=== PATIENT | female | born 1955 | race Caucasian/White ===

== ENCOUNTER 2020-07-08 16:05 | Inpatient (IN) | payer MEDICAID ==
[~2020-07-08] VITALS: Ht 160 cm; Wt 94.6 kg
--- NOTE | 2020-07-08 16:15 | NUR ---
Pt arrived to room 35, assumed care. Pt presents with small bite j luis on right hand from cat bite, red streaking up arm with pain. Pt denies fever, n/v.
--- NOTE | 2020-07-08 16:20 | NUR ---
Cat bit happened yesterday, pt went to clinic today and sent pt here to ED.
--- NOTE | 2020-07-08 16:30 | NUR ---
Pt reports she has some neausea and pain in right arm and a headache.
[2020-07-08] MEDS ORDERED: DOXYCYCLINE 100 MG in DEXTROSE 5% 250 ML IV ONE (16:36)
[2020-07-08 16:56] LABS: BASOPHILS % (AUTO) 0 % (0-1); EOSINOPHILS % (AUTO) 1 % (1-7); LYMPHOCYTES % (AUTO) 8 % (22-44); MEAN CORPUSCULAR HEMOGLOBIN 29.4 pg (27.0-34.8); MEAN CORPUSCULAR HGB CONC 33.9 g/dL (32.4-35.8); MONOCYTES % (AUTO) 4 % (2-9); NEUTROPHILS % (AUTO) 88 % (42-75); PLATELET COUNT 169 x10^3/uL (130-400); RED BLOOD COUNT 4.92 x10^6/uL (3.82-5.3); RED CELL DISTRIBUTION WIDTH 13.3 % (9.6-15.2)
[2020-07-08] MEDS ORDERED: METRONIDAZOLE PMX 500MG/100ML 100 ML ONE (16:57)
[2020-07-08 16:59] LABS: MD NO
[2020-07-08] MEDS ORDERED: METRONIDAZOLE PMX 500MG/100ML 100 ML IV ONE (17:00)
[2020-07-08] MEDS ORDERED: AMPICILLIN/SULBACTAM 3 GM in SODIUM CHLORIDE 0.9% 100 ML IV ONE (17:09)
--- NOTE | 2020-07-08 17:57 | NUR ---
IV start has been attempted 3 times- now attempting with US.
--- NOTE | 2020-07-08 18:25 | NUR ---
US IV started. Pt hooked up to monitor, rechecking vitals. Dr. Hastings aware that pt had allergic reaction to penicillin as a child with a rash but no respiratory symptoms. Okay'd giving unasyn, will monitor pt closely during and post administration.
--- NOTE | 2020-07-08 18:25 | NUR ---
TASK RN: PLACED PIV VIA US RUE
--- NOTE | 2020-07-08 18:27 | NUR ---
Antibiotic not started yet. Monitor showing a-fib HR as high as 173. Dr. Hastings at bedside.
--- NOTE | 2020-07-08 18:35 | NUR ---
RN at bedside, pt hooked up to monitor, Unasyn started per MD approval.
[2020-07-08] MEDS ORDERED: RIVAROXABAN 20 MG TABLET PO SCH (18:38)
[2020-07-08] MEDS ORDERED: DILTIAZEM 5 MG/ML, 5ML ONE ×2 (18:39→18:45)
[2020-07-08] MEDS ORDERED: RIVAROXABAN 20 MG TABLET ONE (18:45)
--- NOTE | 2020-07-08 18:59 | NUR ---
HR down to 111 after dilt administered per eMAR. XR at bedside. Unasyn infusing. Pt denies any allergic symptoms d/t antibiotic.
[2020-07-08] MEDS ORDERED: SODIUM CHLORIDE 0.9% 1,000ML IVBOLUS ONE (19:00)
[2020-07-08] MEDS ORDERED: DILTIAZEM 5 MG/ML, 5ML IVPush ONE (19:00)
--- NOTE | 2020-07-08 19:26 | NUR ---
Pt reporting nausea and pain is getting worse, informing Dr. Hastings.
--- NOTE | 2020-07-08 19:32 | NUR ---
Pt shaking and shivering, reporting she is just freezing, temp. 98.6. Also reporting sudden chest pain. Informing Dr. Hastings. Pt hooked up to monitor, NS infusing through IV, RN at bedside.
--- NOTE | 2020-07-08 19:37 | NUR ---
Dr. Hastings at bedside visiting with pt. Floor is ready to get report on pt- Dr. Hastings reports she is good to go up to floor.
--- NOTE | 2020-07-08 19:38 | NUR ---
MED REC: pt reports the only medication she takes at home is tylenol as needed.
--- NOTE | 2020-07-08 20:08 | NUR ---
Report called to [facility].
--- NOTE | 2020-07-08 20:15 | NUR ---
Pt being transported to room 523
[2020-07-08] MEDS ORDERED: IBUPROFEN 200 MG TABLET PO ONE (21:00)
[2020-07-08 21:08] VITALS: BP 118/84
[2020-07-08] MEDS ORDERED: LACTATED RINGERS 1,000 ML IV SCH (21:30)
[2020-07-08] MEDS ORDERED: LABETALOL 5MG/ML, 20ML IVPush PRN (21:30)
[2020-07-08] MEDS ORDERED: MELATONIN 5 MG TABLET PO PRN (21:30)
[2020-07-08] MEDS ORDERED: LIDODERM 5% PATCH TD PRN (21:30)
[2020-07-08] MEDS: METOPROLOL TARTRATE 25 MG TAB PO SCH (21:34)
[2020-07-08] MEDS: OXYcodone/APAP 5/325MG TABLET PO PRN (21:35)
[2020-07-09] MEDS: METRONIDAZOLE PMX 500MG/100ML 100 ML IV SCH ×2 (00:47→08:24)
[2020-07-09 00:53] VITALS: BP 111/53
[2020-07-09 05:27] LABS: BASOPHILS % (AUTO) 1 % (0-1); EOSINOPHILS % (AUTO) 0 % (1-7); LYMPHOCYTES % (AUTO) 16 % (22-44); MEAN CORPUSCULAR HEMOGLOBIN 29.3 pg (27.0-34.8); MEAN CORPUSCULAR HGB CONC 33.6 g/dL (32.4-35.8); MEAN PLATELET VOLUME 9.4 fL (7.4-10.4); MONOCYTES % (AUTO) 5 % (2-9); NEUTROPHILS % (AUTO) 78 % (42-75); PLATELET COUNT 200 x10^3/uL (130-400); RED BLOOD COUNT 4.43 x10^6/uL (3.82-5.3); RED CELL DISTRIBUTION WIDTH 13.5 % (9.6-15.2)
[2020-07-09 05:30] VITALS: BP 122/66
[2020-07-09] MEDS: DOXYCYCLINE 100 MG in DEXTROSE 5% 250 ML IV SCH ×2 (05:31→17:24)
[2020-07-09 05:32] LABS: MD NO
[2020-07-09] MEDS: METOPROLOL TARTRATE 25 MG TAB PO SCH ×2 (05:35→17:23)
[2020-07-09 05:38] LABS: ANION GAP 6 mmol/L (5-15); CALCIUM 8.2 mg/dL (8.5-10.1); CHLORIDE 112 mmol/L (98-107)
[2020-07-09 05:51] LABS: CREATININE 0.88 mg/dL (0.55-1.02); FREE T4 (FREE THYROXINE) 1.19 ng/dL (0.76-1.46)
[2020-07-09 07:06] VITALS: BP 105/70
[2020-07-09] MEDS: ACETAMINOPHEN 325 MG TABLET PO PRN ×2 (08:23→14:31)
[2020-07-09 13:28] VITALS: BP 108/73
[2020-07-09] MEDS: RIVAROXABAN 20 MG TABLET PO SCH (17:23)
[2020-07-09 20:38] VITALS: BP 112/80
[2020-07-10 01:04] VITALS: BP 121/81
[2020-07-10] MEDS: METOPROLOL TARTRATE 25 MG TAB PO SCH ×5 (05:32→20:45)
[2020-07-10] MEDS: DOXYCYCLINE 100 MG in DEXTROSE 5% 250 ML IV SCH ×2 (05:32→17:12)
[2020-07-10] MEDS: OXYcodone/APAP 5/325MG TABLET PO PRN (05:32)
[2020-07-10 06:33] VITALS: BP 112/69
[2020-07-10] MEDS: ONDANSETRON 2MG/ML, 2ML IVPush PRN ×2 (06:58→14:03)
[2020-07-10 07:21] VITALS: BP 113/80
[2020-07-10 08:55] LABS: BASOPHILS % (AUTO) 0 % (0-1); EOSINOPHILS % (AUTO) 0 % (1-7); LYMPHOCYTES % (AUTO) 9 % (22-44); MEAN CORPUSCULAR HEMOGLOBIN 28.8 pg (27.0-34.8); MONOCYTES % (AUTO) 4 % (2-9); NEUTROPHILS % (AUTO) 87 % (42-75); PLATELET COUNT 202 x10^3/uL (130-400); RED BLOOD COUNT 4.57 x10^6/uL (3.82-5.3); RED CELL DISTRIBUTION WIDTH 13.3 % (9.6-15.2)
[2020-07-10 08:56] LABS: MD NO
[2020-07-10 09:08] LABS: ALBUMIN 3.3 g/dL (3.4-5.0); ANION GAP 9 mmol/L (5-15); CALCIUM 8.4 mg/dL (8.5-10.1); CHLORIDE 109 mmol/L (98-107)
[2020-07-10 09:20] LABS: ALANINE AMINOTRANSFERASE 154 U/L (12-78); CREATININE 0.89 mg/dL (0.55-1.02)
[2020-07-10 09:22] LABS: ALKALINE PHOSPHATASE 107 U/L (45-117); BILIRUBIN,TOTAL 0.5 mg/dL (0.2-1.0); TOTAL PROTEIN 6.9 g/dL (6.4-8.2)
[2020-07-10 14:01] VITALS: BP 114/63
[2020-07-10] MEDS: ACETAMINOPHEN 325 MG TABLET PO PRN (14:16)
[2020-07-10] MEDS: RIVAROXABAN 20 MG TABLET PO SCH (17:12)
[2020-07-10 20:00] VITALS: BP 132/72
[2020-07-10] MEDS: TEMAZEPAM 15 MG CAPSULE PO PRN (22:16)
[2020-07-11] VITALS (8 sets, daily range): BP systolic 97–147; BP diastolic 55–89
[2020-07-11] MEDS: DOXYCYCLINE 100 MG in DEXTROSE 5% 250 ML IV SCH ×2 (05:07→19:56)
[2020-07-11 05:33] LABS: BASOPHILS % (AUTO) 0 % (0-1); EOSINOPHILS % (AUTO) 1 % (1-7); LYMPHOCYTES % (AUTO) 27 % (22-44); MEAN CORPUSCULAR HEMOGLOBIN 29.4 pg (27.0-34.8); MEAN CORPUSCULAR HGB CONC 33.7 g/dL (32.4-35.8); MONOCYTES % (AUTO) 6 % (2-9); NEUTROPHILS % (AUTO) 66 % (42-75); PLATELET COUNT 212 x10^3/uL (130-400); RED BLOOD COUNT 4.66 x10^6/uL (3.82-5.3); RED CELL DISTRIBUTION WIDTH 13.6 % (9.6-15.2)
[2020-07-11 05:34] LABS: MD NO
[2020-07-11 05:51] LABS: ALANINE AMINOTRANSFERASE 121 U/L (12-78); ALBUMIN 3.3 g/dL (3.4-5.0); ANION GAP 7 mmol/L (5-15); CALCIUM 8.7 mg/dL (8.5-10.1); CHLORIDE 111 mmol/L (98-107); CREATININE 0.97 mg/dL (0.55-1.02)
[2020-07-11 05:53] LABS: ALKALINE PHOSPHATASE 102 U/L (45-117); BILIRUBIN,TOTAL 0.4 mg/dL (0.2-1.0); TOTAL PROTEIN 6.7 g/dL (6.4-8.2)
[2020-07-11] MEDS: METOPROLOL TARTRATE 25 MG TAB PO SCH ×3 (08:18→20:59)
[2020-07-11] MEDS: DOCUSATE 100 MG CAPSULE PO PRN ×2 (08:18→20:55)
[2020-07-11] MEDS: DILTIAZEM 30 MG TABLET PO SCH ×3 (12:42→20:54)
[2020-07-11] MEDS: RIVAROXABAN 20 MG TABLET PO SCH (17:47)
[2020-07-11] MEDS: TEMAZEPAM 15 MG CAPSULE PO PRN (20:54)
[2020-07-12 01:30] VITALS: BP 98/61
[2020-07-12] MEDS: DILTIAZEM 30 MG TABLET PO SCH ×2 (05:49→11:45)
[2020-07-12] MEDS: ACETAMINOPHEN 325 MG TABLET PO PRN (05:53)
[2020-07-12 07:15] VITALS: BP 127/77
[2020-07-12 08:36] VITALS: BP 120/73
[2020-07-12] MEDS: METOPROLOL TARTRATE 25 MG TAB PO SCH (08:40)
[2020-07-12] MEDS: DOXYCYCLINE 100 MG in DEXTROSE 5% 250 ML IV SCH (08:41)
[2020-07-12] MEDS ORDERED: DILT30TA33 PO (09:06)
[2020-07-12] MEDS ORDERED: DOXY100T PO (09:06)
[2020-07-12] MEDS ORDERED: RIVA20TA PO (09:06)
[2020-07-12 11:49] VITALS: BP 124/78
[2020-07-12] MEDS ORDERED: DOXYCYCLINE 100MG TABLET PO SCH (21:00)
== END 2020-07-12 13:55 | disposition home or self-care (01) | DRG 383 ==
LOC: ED 17:53 → EDIP 18:56 → 5SO 20:20 → DCLOUNGE 07-12 13:46
PROVIDERS: ADMIT Internal Medicine; ATTEND Internal Medicine
DX: L03.113 Cellulitis of right upper limb (principal); I48.0 Paroxysmal atrial fibrillation; D68.69 Other thrombophilia; E03.9 Hypothyroidism, unspecified; E66.9 Obesity, unspecified; Z88.0 Allergy status to penicillin; Z91.048 Other nonmedicinal substance allergy status; E78.5 Hyperlipidemia, unspecified; I10 Essential (primary) hypertension; K76.0 Fatty (change of) liver, not elsewhere classified; N20.0 Calculus of kidney; W55.01XA Bitten by cat, initial encounter; Z79.01 Long term (current) use of anticoagulants; Z87.891 Personal history of nicotine dependence; Z98.82 Breast implant status; F41.9 Anxiety disorder, unspecified; F32.9 Major depressive disorder, single episode, unspecified; F43.9 Reaction to severe stress, unspecified; D72.829 Elevated white blood cell count, unspecified; Z68.36 Body mass index [BMI] 36.0-36.9, adult
CPT/HCPCS: 36415; 71045; 76700; 80048; 80053; 83605; 84439; 84443; 85025; 87040; 93005; 93306; 96365; 96366; 96375; 99285; G0378; J0295; J2405; J7060; J7030

== ENCOUNTER 2020-08-01 11:24 | Day surgery (SDC) | payer MEDICAID ==
[~2020-08-01] VITALS: Ht 160 cm; Wt 88.2 kg
[~2020-08-01 11:24] MED LIST: DILT30TA33 PO; DOXY100T PO; PROPOFOL 10 MG/ML, 20ML ONE; RIVA20TA PO
[2020-08-01] MEDS ORDERED: SODIUM CHLORIDE 0.9% 1,000 ML IV SCH (12:00)
[2020-08-01 12:15] VITALS: BP 139/83
[2020-08-01] MEDS ORDERED: DILT-8 PO (12:21)
[2020-08-01 12:31] LABS: ANION GAP 4 mmol/L (5-15); CALCIUM 8.9 mg/dL (8.5-10.1); CHLORIDE 110 mmol/L (98-107); CREATININE 0.85 mg/dL (0.55-1.02); INTERNATIONAL NORMALIZED RATIO 1.17 (0.93-1.1); PROTHROMBIN TIME 12.5 Seconds (9.6-11.5)
[2020-08-01] MEDS ORDERED: AMIO200T42 PO (13:04)
[2020-08-01] MEDS ORDERED: AMIODARONE 200 MG TABLET PO SCH (21:00)
== END 2020-08-01 14:10 | disposition home or self-care (01) ==
LOC: CACL 11:24
PROVIDERS: ATTEND Internal Medicine Clinical Cardiac Electrophysiology
DX: I48.19 Other persistent atrial fibrillation (principal); I34.0 Nonrheumatic mitral (valve) insufficiency; I36.1 Nonrheumatic tricuspid (valve) insufficiency; I10 Essential (primary) hypertension; Z88.8 Allergy status to other drugs, medicaments and biological substances; Z88.5 Allergy status to narcotic agent; Z88.0 Allergy status to penicillin; Z20.822 Contact with and (suspected) exposure to COVID-19; Z79.01 Long term (current) use of anticoagulants; Z79.899 Other long term (current) drug therapy; Z72.89 Other problems related to lifestyle; Z87.891 Personal history of nicotine dependence
CPT/HCPCS: 36415; 80048; 85610; 87635; 92960; 93005; 93312; 93321; 93325; J2704

== ENCOUNTER 2020-08-25 22:02 | Emergency (ER) | payer MEDICAID ==
[~2020-08-25 22:02] MED LIST changes: +AMIO200T42 PO; +DILT-8 PO; -PROPOFOL 10 MG/ML, 20ML ONE
[2020-08-25 22:06] VITALS: BP 139/77
--- NOTE | 2020-08-25 22:48 | NUR ---
PT REPORTS BEING BIT BY HER CAT THIS EVENING AT 1830. HX OF SIMILAR BITE REQUIRING ADMIT FOR TX OF CELLULITIS. DENIES MRSA HX. PT OWNS CAT AND DENIES CONCERN FOR RABIES.
[2020-08-25] MEDS ORDERED: NEOSPORIN OINT. PKT 1 PACKET ONE (22:56)
--- NOTE | 2020-08-25 23:06 | NUR ---
TECH AT BEDSIDE TO IRRIGATE AND DRESS WOUND
[2020-08-25] MEDS ORDERED: DIPH,PERTUSS(ACELL),TET VAC/PF 0.5 ML IM-VACC ONE ×2 (23:29→23:30)
== END 2020-08-25 23:46 | disposition home or self-care (01) ==
LOC: ED 22:42
DX: S61.452A Open bite of left hand, initial encounter (principal); W55.01XA Bitten by cat, initial encounter; Y93.89 Activity, other specified; Y92.89 Other specified places as the place of occurrence of the external cause; Y99.8 Other external cause status
CPT/HCPCS: 90471; 90715; 99283

== ENCOUNTER 2020-12-04 10:43 | Day surgery (SDC) | payer MEDICAID ==
[~2020-12-04] VITALS: Ht 160 cm; Wt 90.9 kg
[2020-12-04 11:40] VITALS: BP 143/78
[2020-12-04 12:19] LABS: BASOPHILS % (AUTO) 1 % (0-1); EOSINOPHILS % (AUTO) 0 % (1-7); LYMPHOCYTES % (AUTO) 21 % (22-44); MEAN CORPUSCULAR HGB CONC 33.2 g/dL (32.4-35.8); MEAN PLATELET VOLUME 8.8 fL (7.4-10.4); MONOCYTES % (AUTO) 4 % (2-9); NEUTROPHILS % (AUTO) 74 % (42-75); PLATELET COUNT 206 x10^3/uL (130-400); RED CELL DISTRIBUTION WIDTH 13.8 % (9.6-15.2)
[2020-12-04 12:27] LABS: ALANINE AMINOTRANSFERASE 28 U/L (12-78); ALBUMIN 3.7 g/dL (3.4-5.0); ANION GAP 4 mmol/L (5-15); CALCIUM 8.9 mg/dL (8.5-10.1); CHLORIDE 107 mmol/L (98-107); CREATININE 1.09 mg/dL (0.55-1.02)
[2020-12-04 12:38] LABS: ALKALINE PHOSPHATASE 47 U/L (45-117); BILIRUBIN,TOTAL 0.5 mg/dL (0.2-1.0); TOTAL PROTEIN 6.9 g/dL (6.4-8.2)
[2020-12-04] MEDS ORDERED: PROPOFOL 10 MG/ML, 20ML ONE (12:41)
== END 2020-12-04 14:07 | disposition home or self-care (01) ==
LOC: CACL 10:43
PROVIDERS: ATTEND Internal Medicine Clinical Cardiac Electrophysiology
DX: I48.19 Other persistent atrial fibrillation (principal); I07.1 Rheumatic tricuspid insufficiency; I10 Essential (primary) hypertension; F12.10 Cannabis abuse, uncomplicated; Z20.822 Contact with and (suspected) exposure to COVID-19; Z79.01 Long term (current) use of anticoagulants; Z79.899 Other long term (current) drug therapy; Z88.0 Allergy status to penicillin; Z88.5 Allergy status to narcotic agent; Z88.8 Allergy status to other drugs, medicaments and biological substances
CPT/HCPCS: 36415; 80053; 84443; 85025; 87635; 92960; 93312; 93321; 93325; J2704